=== PATIENT | female | born 1990 | race Caucasian/White ===

== ENCOUNTER 2016-05-30 18:34 | Emergency (ER) | payer MEDICAID ==
[~2016-05-30] VITALS: Wt 107.7 kg
[~2016-05-30 18:34] MED LIST: FOLI0.4T2 PO; PREN-15 PO
[2016-05-30 22:39] LABS: ADD SCAN DIFF NO
[2016-05-30 22:43] LABS: BASOPHIL # 0.1 10^3/ul (0.0-0.1); BASOPHILS % 0.4 % (0.0-2.0); EOSINOPHILS # 0.1 10^3/ul (0.0-0.5); EOSINOPHILS % 0.8 % (0.0-7.0); HEMOGLOBIN 13.3 g/dl (12.0-16.0); LYMPHOCYTES # 3.5 10^3/ul (0.8-2.9); LYMPHOCYTES % 30.6 % (15.0-51.0); MEAN CORPUSCULAR HGB CONC 31.7 g/dl (32.0-37.0); MEAN CORPUSCULAR VOLUME 85.4 fl (82.0-101.0); MEAN PLATELET VOLUME 9.5 fl (7.4-10.4); MONOCYTE # 0.6 10^3/ul (0.3-0.9); MONOCYTES % 5.2 % (0.0-11.0); NEUTROPHIL # 7.2 10^3/ul (1.6-7.5); NEUTROPHILS % 62.7 % (39.0-77.0); PLATELET COUNT 336 10^3/UL (140-415); RED BLOOD COUNT 4.92 10^6/ul (4.20-5.40); WHITE BLOOD COUNT 11.5 10^3/ul (4.8-10.8)
[2016-05-30 23:05] LABS: ADD UMIC NO; URINE BILIRUBIN (Dip) NEGATIVE (NEGATIVE); URINE BLOOD (Dip) NEGATIVE (NEGATIVE); URINE COLOR LT. YELLOW (YELLOW); URINE GLUCOSE (Dip) NEGATIVE (NEGATIVE); URINE KETONES (Dip) NEGATIVE (NEGATIVE); URINE LEUKOCYTE ESTERASE (Dip) NEGATIVE (NEGATIVE); URINE NITRITE (Dip) NEGATIVE (NEGATIVE); URINE TOTAL PROTEIN (Dip) NEGATIVE (NEGATIVE); URINE UROBILINOGEN (Dip) 0.2 E.U./dL (0.1-1.0)
--- NOTE | 2016-05-30 23:14 | RADRPT ---
PROCEDURE: ULTRASOUND OBSTETRICAL CLINICAL INDICATION: 25-year-old female with vaginal bleeding. TECHNIQUE: Multiple sonographic images of the pelvis were obtained. The images were reviewed on a PACS workstation. COMPARISON: None. FINDINGS: The uterus is retroverted and measures 8.0 x 5.3 x 6.5 cm. The endometrial echo complex appears to b e diffusely thickened measuring 24 mm. There is a single intrauterine gestation. The mean sac diam eter is 0.31 cm. This yields an estimated gestational age of 4 weeks and 6 days. The estimated date of delivery is January 31, 2017. There is no evidence for a yolk sac or pole at this time. There is no evidence for free fluid. The right ovary has a normal echotexture and measures 2.5 x 1. 7 x 1.7 cm. The left ovary has a normal echotexture and measures 3.8 x 3.2 x 3.0 cm. There is a left ovarian cyst measuring approximately 2.2 x 2.4 x 1.8 cm. Multiple smaller follicular cysts identifi ed. There is normal flow to the ovaries bilaterally. No adnexal masses are noted. IMPRESSION: 1. Single early intrauterine gestation of approximately 4 weeks 6 days without evidence for a pole at this time. Clinical correlation is necessary. 2. Left ovarian cysts. .David Robins MD, Date Time Electronically viewed and signed by .David Robins MD, on 05/30/2016 23:14 .M/
--- NOTE | 2016-05-30 23:46 | ERD ---
ER Documentation Chief Complaint Date/Time DATE: 05/30/16 TIME: 23:43 Chief Complaint sent by clinic r/o demise HPI This is a 25-year-old female presents to the ER sent by her clinic to rule out demise. Per patient she is about 5 weeks . She does not have any vaginal bleeding or pelvic pain. Her last normal menstrual period was April 24. A0. She does not have any urinary frequency or dysuria. She does not have any nausea vomiting or diarrhea. ROS 12 point review of systems was done, all negative except per HPI. Medications Home Meds Reported Medications Folic Acid* (Folic Acid*) 0.4 Mg Tablet, 0.4 MG PO DAILY 08/26/11 Vit/Fe Fumarate/Fa (Prenafirst Tablet) 1 Tab Tablet, 1 TAB PO DAILY 08/26/11 Allergies Allergies: Coded Allergies: No Known Allergies (Verified Allergy, 10/30/11) PMhx/Soc History of Surgery: No Anesthesia Reaction: No Hx Neurological Disorder: No Hx Respiratory Disorders: No Hx Cardiac Disorders: No Hx Psychiatric Problems: No Hx Miscellaneous Medical Probl: No Hx Alcohol Use: No Hx Substance Use: No Hx Tobacco Use: No Physical Exam Vitals Vital Signs Date Time Temp Pulse Resp B/P Pulse Ox O2 Delivery O2 Flow Rate FiO2 05/30/16 19:24 98.6 92 20 117/64 98 Physical Exam GENERAL: The patient is well developed and appropriate for usual state of health , in no apparent distress. HEENT: Atraumatic. CHEST: Clear to auscultation bilaterally. There are no rales, wheezes or rhonchi. HEART: Regular rate and rhythm. No murmurs, clicks, rubs or gallops. ABDOMEN: Soft, nontender and nondistended. Good bowel sounds. No rebound or guarding. No gross peritonitis. No gross organomegaly or masses. No Her sign or McBurney point tenderness. BACK: No midline or flank tenderness. SKIN: The skin is warm and dry. Result Diagram: 05/30/162219 Results 24 hrs Laboratory Tests Test 05/30/16 22:00 05/30/16 22:20 Urine Bilirubin NEGATIVE Urine Clarity CLEAR Urine Color LT. YELLOW Urine Glucose NEGATIVE% Urine Hemoglobin NEGATIVE Urine Ketones NEGATIVE Urine Leukocyte Esterase NEGATIVE Urine Nitrite NEGATIVE Urine Specific [place] <=1.005 Urine Total Protein NEGATIVE Urine Urobilinogen 0.2 E.U./dL Urine pH 6.0 Basophils # 0.110^3/ul Basophils % 0.4% Beta HCG, Quantitative 747.6mIU/ml Eosinophils # 0.110^3/ul Eosinophils % 0.8% Hematocrit 42.0% Hemoglobin 13.3g/dl Lymphocytes # 3.510^3/ul Lymphocytes % 30.6% Mean Corpuscular Hemoglobin 27.0pg Mean Corpuscular Hemoglobin Concent 31.7g/dl Mean Corpuscular Volume 85.4fl Mean Platelet Volume 9.5fl Monocytes # 0.610^3/ul Monocytes % 5.2% Neutrophils # 7.210^3/ul Neutrophils % 62.7% Nucleated Red Blood Cells # 0.010^3/ul Nucleated Red Blood Cells % 0.0/100WBC Platelet Count 87517^3/UL Red Blood Count 4.9210^6/ul Red Cell Distribution Width 14.0% White Blood Count 11.510^3/ul Procedures/MDM Differential diagnosis: Threatened , missed , incomplete , ectopic , molar , UTI, pyelonephritis. At this time patient is currently 4 weeks . It is a very early on and her quantitative HCG is within normal range for her weeks of patient does not have any bleeding at this time. She also does not have any pelvic pain. Suspicion for threatened or missed is low. Suspicion for ectopic is low. Patient is to follow-up with her primary care doctor within 1-2 days and return to her OB as soon as possible. She can also return here in 48 hours for follow-up. My medical decision making was shared with the patient she understands and agrees with plan. Departure Diagnosis: Primary Impression: Encounter for laboratory test Condition: Stable Patient Instructions: : Common Questions Additional Instructions: Llame al doctor MAANA y vineet doug RUTH PARA DENTRO DE 1-2 MCCRAY.Dgale a la secretaria que nosotros le instruimos hacer esta ruth.Avise o llame si perez condicin se empeora antes de la ruth. Regresa aqui si peor o no mejor. DELVIN PALOMO May 30, 2016 23:46
[2016-05-30 23:48] VITALS: BP 127/75; PULSE 75; RESP 16; TEMP 98.3
== END 2016-05-30 23:48 | disposition home or self-care (01) ==
LOC: FTE 18:34
DX: Z36 Encounter for antenatal screening of mother (principal); Z3A.01 Less than 8 weeks gestation of pregnancy
CPT/HCPCS: 76801; 76817; 81003; 84702; 85025; 86900; 86901; Z7502

== ENCOUNTER 2016-08-04 10:18 | Emergency (ER) | payer SELFPAY ==
[~2016-08-04] VITALS: Ht 162.6 cm; Wt 107.0 kg
[2016-08-04 10:20] VITALS: Ht 162.6 cm; Wt 107.0 kg
--- NOTE | 2016-08-04 10:58 | ERD ---
ER Documentation Chief Complaint Date/Time DATE: 08/04/16 TIME: 10:57 Chief Complaint pelvic pain - 14 weeks LMP - 04/24/16 HPI Patient is a 25-year-old female with no past medical history who is who presents to the ED with a follow-up ultrasound. Patient was seen at her clinic [facility] and she is complaining of pelvic pain. Patient states that they did not hear a heart tone. She denies vaginal bleeding or other symptoms. Denies abdominal pain, nausea, vomiting or diarrhea. Denies headache or dizziness, neck pain or neck stiffness. Denies chest pain, cough, shortness of breath or difficulty breathing. Denies leg pain or leg swelling. Has no other complaints. ROS All systems reviewed and are negative except as per history of present illness. Medications Home Meds Active Scripts Acetaminophen* (Tylophen*) 500 Mg Capsule, 1 CAP PO Q6H Y for PAIN AND OR ELEVATED TEMP, #20 CAP Prov:ALEENA STILL PA-C 08/04/16 Reported Medications Folic Acid* (Folic Acid*) 0.4 Mg Tablet, 0.4 MG PO DAILY 08/26/11 Vit/Fe Fumarate/Fa (Prenafirst Tablet) 1 Tab Tablet, 1 TAB PO DAILY 08/26/11 Allergies Allergies: Coded Allergies: No Known Allergies (Verified Allergy, 10/30/11) PMhx/Soc Medical and Surgical Hx: pt denies Medical Hx, pt denies Surgical Hx History of Surgery: Yes (Appendectomy) Anesthesia Reaction: No Hx Neurological Disorder: No Hx Respiratory Disorders: No Hx Cardiac Disorders: No Hx Psychiatric Problems: No Hx Miscellaneous Medical Probl: No Hx Alcohol Use: No Hx Substance Use: No Hx Tobacco Use: No Smoking Status: Never smoker FmHx Family History: No coronary disease, No diabetes, No other Physical Exam Vitals Vital Signs Date Time Temp Pulse Resp B/P Pulse Ox O2 Delivery O2 Flow Rate FiO2 08/04/16 10:20 98.7 67 19 114/58 96 Physical Exam GENERAL: Well-developed, well-nourished female. Appears in no acute distress. HEAD: Normocephalic, atraumatic. EYES: Pupils are equally reactive bilaterally. EOMs grossly intact. No conjunctival erythema. ENT: Moist mucous membranes. No uvula deviation. No kissing tonsils. No exudates. NECK: Supple. No lymphadenopathy or thyromegaly. No meningismus. negative kernig. negative brudinski. LUNG: Clear to auscultation bilaterally. No rhonchi, wheezing, rales or coarse breath sounds. HEART: Regular rate and rhythm. No murmurs, rubs or gallops. Extremities: Equal pulses bilaterally. No peripheral clubbing, cyanosis or edema. No unilateral leg swelling. NEUROLOGIC: Alert and oriented. Moving all four extremities. 5/5 strength in all extremities. Normal speech. Steady gait. SKIN: Normal color. Warm and dry. No rashes or lesions. Capillary refill < 2 seconds Result Diagram: 08/04/16 1123 Results 24 hrs Laboratory Tests Test 08/04/16 10:54 08/04/16 11:23 Urine Color LT. YELLOW Urine Clarity CLEAR Urine pH 7.0 Urine Specific [place] 1.020 Urine Ketones NEGATIVE Urine Nitrite NEGATIVE Urine Bilirubin NEGATIVE Urine Urobilinogen 0.2 E.U./dL Urine Leukocyte Esterase NEGATIVE Urine Hemoglobin NEGATIVE Urine Glucose NEGATIVE% Urine Total Protein NEGATIVE White Blood Count 11.210^3/ul Red Blood Count 4.7410^6/ul Hemoglobin 13.4g/dl Hematocrit 40.7% Mean Corpuscular Volume 85.9fl Mean Corpuscular Hemoglobin 28.3pg Mean Corpuscular Hemoglobin Concent 32.9g/dl Red Cell Distribution Width 13.6% Platelet Count 98437^3/UL Mean Platelet Volume 10.7fl Neutrophils % 72.2% Lymphocytes % 21.6% Monocytes % 4.8% Eosinophils % 0.7% Basophils % 0.3% Nucleated Red Blood Cells % 0.0/100WBC Neutrophils # 8.110^3/ul Lymphocytes # 2.410^3/ul Monocytes # 0.510^3/ul Eosinophils # 0.110^3/ul Basophils # 0.010^3/ul Nucleated Red Blood Cells # 0.010^3/ul Beta HCG, Quantitative 10264.0mIU/ml Procedures/MDM ER COURSE: I kept the patient and/or family informed of laboratory and diagnostic imaging results throughout the emergency room course. EKG, MONITORS, & DIAGNOSTIC IMAGING: [place] [id number] Radiology Main Line: [phone] DIAGNOSTIC IMAGING REPORT Patient: MATEO HUGHES : 1990 Age: 25 Sex: F MR #: [id number] DOS: 08/04/16 1037 Ordering MD: ALEENA STILL PA-C Location: [facility] Room/Bed: PROCEDURE: US OB. CLINICAL INDICATION: Pelvic pain TECHNIQUE: Transabdominal and endovaginal imaging of the gravid uterus is available for review COMPARISON: None available FINDINGS: There is a single intrauterine demonstrating a heart rate of 152 bpm. The crown-rump length equals 8.5 cm, giving an estimated gestational age of 14 weeks 3 days by ultrasound criteria. No subchorionic hemorrhage is identified. The ovaries are not visualized. IMPRESSION: Single live intrauterine with an estimated gestational age of 14 weeks 3 days by ultrasound criteria and an estimated date of delivery of 2016. RPTAT: HH .Smitha Swan MD, Date Time Electronically viewed and signed by .Smitha Swan MD, on 08/04/2016 11 :34 .G/ CC: ALEENA STILL PA-C PROCEDURES: [] MEDICATIONS: [] LAB INTERPRETATION: CBC showed no evidence of systemic infection or severe anemia.UA showed no evidence of leukocytes, nitrites or hematuria. [facility] [place].0 rh: O+ MEDICAL DECISION MAKING: This is a 25-year-old female who is who presents with pelvic pain and follow-up of ultrasound from primary care provider. Vital signs were reviewed. Patient is afebrile. Patient is not hypoxic. Patient is not toxic or ill- appearing. Her ultrasound is read by radiologist is unremarkable and shows Single live intrauterine with an estimated gestational age of 14 weeks 3 days by ultrasound criteria and an estimated date of delivery of 2016. Low suspicion for ovarian torsion, PID, tuboovarian abscess, ectopic , bowel obstruction, pyelonephritis, UTI, appendicitis, cervicitis, septic , molar , HELLP syndrome, preeclampsia, eclampsia, placenta previa, placenta abruptia. DISCHARGE: At this time, patient is stable for discharge and outpatient management with no new complaints during the ER course. Patient was sent home with copy of imaging and laboratory studies and follow-up with her OB doctor. Patient will be discharged home with instructions to recheck for new or worsening symptoms such as fever, nausea, weakness, LOC and to follow up with primary care in the next 1 -2 days. Patient was advised to return to the ER for any new or worsening symptoms. Plan was discussed and patient and/or family understands and agrees. Home instructions were given. Departure Diagnosis: Primary Impression: Pelvic pain complicating Condition: Stable ALEENA STILL PA-C August 04, 2016 10:58
[2016-08-04 11:12] LABS: ADD UMIC NO; URINE BILIRUBIN (Dip) NEGATIVE (NEGATIVE); URINE BLOOD (Dip) NEGATIVE (NEGATIVE); URINE COLOR LT. YELLOW (YELLOW); URINE GLUCOSE (Dip) NEGATIVE (NEGATIVE); URINE KETONES (Dip) NEGATIVE (NEGATIVE); URINE LEUKOCYTE ESTERASE (Dip) NEGATIVE (NEGATIVE); URINE NITRITE (Dip) NEGATIVE (NEGATIVE); URINE TOTAL PROTEIN (Dip) NEGATIVE (NEGATIVE); URINE UROBILINOGEN (Dip) 0.2 E.U./dL (0.1-1.0)
[2016-08-04 11:33] LABS: ADD SCAN DIFF NO
--- NOTE | 2016-08-04 11:34 | RADRPT ---
PROCEDURE: US OB. CLINICAL INDICATION: Pelvic pain TECHNIQUE: Transabdominal and endovaginal imaging of the gravid uterus is available for review COMPARISON: None available FINDINGS: There is a single intrauterine demonstrating a heart rate of 152 bpm. The crown-rump francois th equals 8.5 cm, giving an estimated gestational age of 14 weeks 3 days by ultrasound criteria. No subchorionic hemorrhage is identified. The ovaries are not visualized. IMPRESSION: Single live intrauterine with an estimated gestational age of 14 weeks 3 days by ultrasoun d criteria and an estimated date of delivery of 01/30/2017. RPTAT: HH .Smitha Swan MD, MD Date Time Electronically viewed and signed by .Smitha Swan MD, on 08/04/2016 11:34 .G/
[2016-08-04 11:45] LABS: BASOPHILS % 0.3 % (0.0-2.0); EOSINOPHILS # 0.1 10^3/ul (0.0-0.5); EOSINOPHILS % 0.7 % (0.0-7.0); HEMATOCRIT 40.7 % (37.0-47.0); HEMOGLOBIN 13.4 g/dl (12.0-16.0); LYMPHOCYTES # 2.4 10^3/ul (0.8-2.9); LYMPHOCYTES % 21.6 % (15.0-51.0); MEAN CORPUSCULAR HEMOGLOBIN 28.3 pg (29.0-33.0); MEAN CORPUSCULAR HGB CONC 32.9 g/dl (32.0-37.0); MEAN CORPUSCULAR VOLUME 85.9 fl (82.0-101.0); MEAN PLATELET VOLUME 10.7 fl (7.4-10.4); MONOCYTE # 0.5 10^3/ul (0.3-0.9); MONOCYTES % 4.8 % (0.0-11.0); NEUTROPHIL # 8.1 10^3/ul (1.6-7.5); NEUTROPHILS % 72.2 % (39.0-77.0); PLATELET COUNT 236 10^3/UL (140-415); RED BLOOD COUNT 4.74 10^6/ul (4.20-5.40); RED CELL DISTRIBUTION WIDTH 13.6 % (11.5-14.5); WHITE BLOOD COUNT 11.2 10^3/ul (4.8-10.8)
[2016-08-04] MEDS ORDERED: ACET500C5 PO (12:58)
== END 2016-08-04 14:11 | disposition home or self-care (01) ==
LOC: FTE 10:18
DX: O26.892 Other specified pregnancy related conditions, second trimester (principal); R10.2 Pelvic and perineal pain; Z3A.14 14 weeks gestation of pregnancy
CPT/HCPCS: 36415; 76805; 81003; 84702; 85025; 86900; 86901